=== PATIENT | male | born 1975 | race Caucasian/White ===

== ENCOUNTER 2017-01-31 14:26 | Emergency (ER) | payer SELFPAY ==
[~2017-01-31] VITALS: Ht 165.1 cm; Wt 83.5 kg
[2017-01-31 14:45] VITALS: Ht 165.1 cm; Wt 83.5 kg
--- NOTE | 2017-01-31 16:57 | ERA ---
ER Documentation Chief Complaint Date/Time DATE: 01/31/17 TIME: 16:57 Chief Complaint CAME IN VIA INTAKE DUE TO ABDOMINAL INJURY TWO WEEKS AGO WITH RECTAL BLEED HPI The patient is a 41-year-old male, presenting to the ER because he had abdominal injury from a tire about 2 weeks ago at work on Jan 06, 2017. He has been seen by his occupational medicine physician without any relief, therefore he came to the ER today. He reported that he had bloody stool the first day it happened. He denies head injury, neck pain, complains of vague chest discomfort, complains of moderate and diffuse abdominal pain, denies nausea, vomiting, dysuria, diarrhea. The abdominal pain has been exhibiting or relieving factor. He does not smoke, drinks socially, denies any illicit drug Past medical history/surgical history: None ROS All systems reviewed and are negative except as per history of present illness. Medications Home Meds Active Scripts Polyethylene Glycol* (Miralax*) 17 Gm Powd.pack, 17 GM PO DAILY, #7 Prov:BRANDEE HERNÁNDEZ MD 01/31/17 Ibuprofen* (Motrin*) 600 Mg Tab, 600 MG PO Q6, #30 TAB Prov:BRANDEE HERNÁNDEZ MD 01/31/17 Allergies Allergies: Coded Allergies: No Known Allergy (Unverified , 01/31/17) Physical Exam Vitals Vital Signs Date Time Temp Pulse Resp B/P Pulse Ox O2 Delivery O2 Flow Rate FiO2 01/31/17 19:58 61 16 125/29 99 Room Air 01/31/17 14:45 98.4 80 18 144/77 98 Physical Exam Const: No acute distress. Head: Atraumatic. Eyes: Normal Conjunctiva. ENT: Normal External Ears, Nose and Mouth. Neck: Full range of motion. No meningismus. Resp: Clear to auscultation bilaterally. Cardio: Regular rate and rhythm. Abd: Soft, non distended, normal bowel sounds, Diffuse and moderate abdominal tenderness, no rigidity, rebound, CVA tenderness Skin: No petechiae or rashes. Back: No midline or flank tenderness. Ext: No cyanosis, or edema. Neur: Awake and alert. No focal deficit Psych: Normal Mood and Affect. Result Diagram: 01/31/17 1740 01/31/17 1740 Results 24 hrs Laboratory Tests Test 01/31/17 17:40 01/31/17 18:26 White Blood Count 6.210^3/ul Red Blood Count 4.3910^6/ul Hemoglobin 14.0g/dl Hematocrit 39.4% Mean Corpuscular Volume 89.7fl Mean Corpuscular Hemoglobin 31.9pg Mean Corpuscular Hemoglobin Concent 35.5g/dl Red Cell Distribution Width 11.9% Platelet Count 36146^3/UL Mean Platelet Volume 8.5fl Neutrophils % 50.9% Lymphocytes % 39.3% Monocytes % 6.8% Eosinophils % 2.4% Basophils % 0.3% Nucleated Red Blood Cells % 0.0/100WBC Neutrophils # 3.110^3/ul Lymphocytes # 2.410^3/ul Monocytes # 0.410^3/ul Eosinophils # 0.210^3/ul Basophils # 0.010^3/ul Nucleated Red Blood Cells # 0.010^3/ul Prothrombin Time 12.4Sec Prothrombin Time Ratio 1.0 INR International Normalized Ratio 0.92 Activated Partial Thromboplast Time 30.6Sec Sodium Level 142mmol/L Potassium Level 3.8mmol/L Chloride Level 100mmol/L Carbon Dioxide Level 31mmol/L Anion Gap 15 Blood Urea Nitrogen 13mg/dl Creatinine 0.77mg/dl Glucose Level 105mg/dl Calcium Level 9.4mg/dl Total Bilirubin 0.5mg/dl Direct Bilirubin 0.00mg/dl Indirect Bilirubin 0.5mg/dl Aspartate Amino Transf (AST/SGOT) 40IU/L Alanine Aminotransferase (ALT/SGPT) 102IU/L Alkaline Phosphatase 99IU/L Total Protein 8.7g/dl Albumin 4.8g/dl Globulin 3.90g/dl Albumin/Globulin Ratio 1.23 Lipase 122U/L Bedside Urine pH (LAB) 7.0 Bedside Urine Protein (LAB) Negative Bedside Urine Glucose (UA) Negative Bedside Urine Ketones (LAB) Negative Bedside Urine Blood Negative Bedside Urine Nitrite (LAB) Negative Bedside Urine Leukocyte Esterase (L Negative Current Medications Medications (Trade) Dose Ordered Sig/Farnaz Route PRN Reason Start Time Stop Time Status Last Admin Dose Admin Morphine Sulfate (morphine) 2 mg ONCE STAT IV 01/31/17 17:02 01/31/17 17:06 DC 01/31/17 17:52 Ondansetron HCl (Zofran Inj) 4 mg ONCE STAT IV 01/31/17 17:02 01/31/17 17:06 DC 01/31/17 17:52 IV Flush 10 ml 10 ml STK-MED ONCE .ROUTE 01/31/17 18:18 01/31/17 18:19 DC Sodium Chloride 100 ml @ ud STK-MED ONCE .ROUTE 01/31/17 18:18 01/31/17 18:19 DC Iohexol (Omnipaque) 100 ml @ ud STK-MED ONCE .ROUTE 01/31/17 18:18 01/31/17 18:19 DC Iohexol (Omnipaque 350mg/ ml) 50 ml STK-MED ONCE .ROUTE 01/31/17 18:18 01/31/17 18:19 DC Procedures/[place] [id number] Radiology Main Line: [phone] DIAGNOSTIC IMAGING REPORT Patient: ANTHONY MURRIETA : 1975 Age: 41 Sex: M MR #: [id number] DOS: 01/31/17 1702 Ordering MD: BRANDEE HERNÁNDEZ MD Location: E/R Room/Bed: PROCEDURE: CTA Chest, abdomen and pelvis. CLINICAL INDICATION: Back and abdomen pain, trauma. TECHNIQUE: The study was performed utilizing a multidetector CT scanner. Direct spiral axial sections were obtained from the thoracic inlet through the pelvis with the use of 128 cc of Omnipaque 350 nonionic intravenous contrast material and reformatted at 2.5 mm. 3-D, coronal and sagittal reformations were obtained. The images were reviewed on a PACS workstation. DLP = 1122.3 mGy-cm. CTDiVol = 14.2 mGy. One or more of the following post reduction techniques were used: - Automated exposure control. - Adjustment of the mA and/or Kv according to patient's size. - Use of iterative reconstruction technique COMPARISON: No prior studies are available for comparison. FINDINGS: CTA chest: The aortic root measures 3.0 cm in maximal diameter. The ascending aorta measures 2.9 cm in maximal diameter. The mid aortic arch measures 2.3 cm in diameter. The proximal descending thoracic aorta measures 2.4 cm in diameter. The mid descending thoracic aorta measures 2.1 cm in diameter. The distal descending thoracic aorta measures 2.1 cm in diameter. No significant calcified or noncalcified atherosclerotic disease is identified in the aorta. No aortic aneurysm or dissection is seen. The origins of the great vessels from the arch of the aorta are widely patent. Normal filling of the visualized proximal portions of the great vessels is observed. The visualized pulmonary arteries fill normally. No pulmonary arterial filling defects are seen. CTA abdomen/pelvis: The abdominal aorta is patent throughout its entirety. No aneurysm or stenosis is observed. The origin of the celiac artery is widely patent. Normal filling of the distal branches of the celiac artery is observed. The origin of the superior mesenteric artery is widely patent. Normal filling of the distal branches of the superior mesenteric artery is observed. Variant anatomy with 2 left renal arteries is identified. The origins of the bilateral renal arteries are widely patent. Normal filling of the distal branches of the renal arteries is observed. Origin of the inferior mesenteric artery is widely patent. Normal filling of the distal branches of the inferior mesenteric artery is observed. Patent aortic bifurcation is observed. Bilateral common iliac arteries are widely patent and normal appearing. Patent bilateral common iliac artery bifurcations are identified. Bilateral internal and external iliac arteries are widely patent and normal appearing. The bilateral common femoral arteries are widely patent and normal appearing. Patent bilateral common femoral artery bifurcations are observed. The visualized proximal portions of the bilateral superficial femoral arteries are unremarkable. CT chest: Heart size is within normal limits. No hilar or mediastinal lymphadenopathy is identified. The visualized portions of the inferior thyroid appear unremarkable. The thoracic esophagus appears normal. Dependent, subsegmental atelectasis is noted in both lungs. Mild degenerative changes are seen in the spine. The subcutaneous and muscular soft tissues surrounding the chest are unremarkable. CT abdomen/pelvis: The liver, gallbladder, pancreas, spleen and adrenals are unremarkable. The kidneys demonstrate a normal appearance. No obstructive uropathy is observed. The bladder is filled with a small to moderate amount of urine. Prostate and seminal vesicles are unremarkable. Moderate to large amount of formed stool is identified in the right colon and transverse colon. Formed stool is also identified in the terminal ileum. The appendix is normal. No dilated loops of small bowel are observed. The stomach and duodenum are unremarkable. No intra-abdominal or pelvic free fluid or fluid collections are observed. No intra-abdominal or pelvic lymphadenopathy is observed. Mild to moderate degenerative changes are identified in the spine. Subcutaneous and muscular soft tissues surrounding the abdomen and pelvis are unremarkable. IMPRESSION: Unremarkable arterial vasculature of the chest abdomen and pelvis. No visualized traumatic injury. Moderate to large amount of formed stool in the right colon and transverse colon with formed stool seen in the terminal ileum. Findings are compatible with constipation. Degenerative changes in the spine. RPTAT: AA .Leo Garner MD, MD Date Time Electronically viewed and signed by .Leo Garner MD, MD on 01/31/2017 20:02 .P/ CC: BRANDEE HERNÁNDEZ MD [place] [id number] Radiology Main Line: [phone] DIAGNOSTIC IMAGING REPORT Patient: ANTHONY MURRIETA : 1975 Age: 41 Sex: M MR #: [id number] DOS: 01/31/17 1702 Ordering MD: BRANDEE HERNÁNDEZ MD Location: E/R Room/Bed: PROCEDURE: CTA Chest, abdomen and pelvis. CLINICAL INDICATION: Back and abdomen pain, trauma. TECHNIQUE: The study was performed utilizing a multidetector CT scanner. Direct spiral axial sections were obtained from the thoracic inlet through the pelvis with the use of 128 cc of Omnipaque 350 nonionic intravenous contrast material and reformatted at 2.5 mm. 3-D, coronal and sagittal reformations were obtained. The images were reviewed on a PACS workstation. DLP = 1122.3 mGy-cm. CTDiVol = 14.2 mGy. One or more of the following post reduction techniques were used: - Automated exposure control. - Adjustment of the mA and/or Kv according to patient's size. - Use of iterative reconstruction technique COMPARISON: No prior studies are available for comparison. FINDINGS: CTA chest: The aortic root measures 3.0 cm in maximal diameter. The ascending aorta measures 2.9 cm in maximal diameter. The mid aortic arch measures 2.3 cm in diameter. The proximal descending thoracic aorta measures 2.4 cm in diameter. The mid descending thoracic aorta measures 2.1 cm in diameter. The distal descending thoracic aorta measures 2.1 cm in diameter. No significant calcified or noncalcified atherosclerotic disease is identified in the aorta. No aortic aneurysm or dissection is seen. The origins of the great vessels from the arch of the aorta are widely patent. Normal filling of the visualized proximal portions of the great vessels is observed. The visualized pulmonary arteries fill normally. No pulmonary arterial filling defects are seen. CTA abdomen/pelvis: The abdominal aorta is patent throughout its entirety. No aneurysm or stenosis is observed. The origin of the celiac artery is widely patent. Normal filling of the distal branches of the celiac artery is observed. The origin of the superior mesenteric artery is widely patent. Normal filling of the distal branches of the superior mesenteric artery is observed. Variant anatomy with 2 left renal arteries is identified. The origins of the bilateral renal arteries are widely patent. Normal filling of the distal branches of the renal arteries is observed. Origin of the inferior mesenteric artery is widely patent. Normal filling of the distal branches of the inferior mesenteric artery is observed. Patent aortic bifurcation is observed. Bilateral common iliac arteries are widely patent and normal appearing. Patent bilateral common iliac artery bifurcations are identified. Bilateral internal and external iliac arteries are widely patent and normal appearing. The bilateral common femoral arteries are widely patent and normal appearing. Patent bilateral common femoral artery bifurcations are observed. The visualized proximal portions of the bilateral superficial femoral arteries are unremarkable. CT chest: Heart size is within normal limits. No hilar or mediastinal lymphadenopathy is identified. The visualized portions of the inferior thyroid appear unremarkable. The thoracic esophagus appears normal. Dependent, subsegmental atelectasis is noted in both lungs. Mild degenerative changes are seen in the spine. The subcutaneous and muscular soft tissues surrounding the chest are unremarkable. CT abdomen/pelvis: The liver, gallbladder, pancreas, spleen and adrenals are unremarkable. The kidneys demonstrate a normal appearance. No obstructive uropathy is observed. The bladder is filled with a small to moderate amount of urine. Prostate and seminal vesicles are unremarkable. Moderate to large amount of formed stool is identified in the right colon and transverse colon. Formed stool is also identified in the terminal ileum. The appendix is normal. No dilated loops of small bowel are observed. The stomach and duodenum are unremarkable. No intra-abdominal or pelvic free fluid or fluid collections are observed. No intra-abdominal or pelvic lymphadenopathy is observed. Mild to moderate degenerative changes are identified in the spine. Subcutaneous and muscular soft tissues surrounding the abdomen and pelvis are unremarkable. IMPRESSION: Unremarkable arterial vasculature of the chest abdomen and pelvis. No visualized traumatic injury. Moderate to large amount of formed stool in the right colon and transverse colon with formed stool seen in the terminal ileum. Findings are compatible with constipation. Degenerative changes in the spine. RPTAT: AA .Leo Garner MD, Date Time Electronically viewed and signed by .Leo Garner MD, on 01/31/2017 19:59 .P/ CC: BRANDEE HERNÁNDEZ MD [place] [address] Radiology Main Line: [phone] DIAGNOSTIC IMAGING REPORT Patient: ANTHONY MURRIETA : 1975 Age: 41 Sex: M MR #: [id number] DOS: 01/31/17 1702 Ordering MD: BRANDEE HERNÁNDEZ MD Location: E/R Room/Bed: PROCEDURE: CTA Chest, abdomen and pelvis. CLINICAL INDICATION: Back and abdomen pain, trauma. TECHNIQUE: The study was performed utilizing a multidetector CT scanner. Direct spiral axial sections were obtained from the thoracic inlet through the pelvis with the use of 128 cc of Omnipaque 350 nonionic intravenous contrast material and reformatted at 2.5 mm. 3-D, coronal and sagittal reformations were obtained. The images were reviewed on a PACS workstation. DLP = 1122.3 mGy-cm. CTDiVol = 14.2 mGy. One or more of the following post reduction techniques were used: - Automated exposure control. - Adjustment of the mA and/or Kv according to patient's size. - Use of iterative reconstruction technique COMPARISON: No prior studies are available for comparison. FINDINGS: CTA chest: The aortic root measures 3.0 cm in maximal diameter. The ascending aorta measures 2.9 cm in maximal diameter. The mid aortic arch measures 2.3 cm in diameter. The proximal descending thoracic aorta measures 2.4 cm in diameter. The mid descending thoracic aorta measures 2.1 cm in diameter. The distal descending thoracic aorta measures 2.1 cm in diameter. No significant calcified or noncalcified atherosclerotic disease is identified in the aorta. No aortic aneurysm or dissection is seen. The origins of the great vessels from the arch of the aorta are widely patent. Normal filling of the visualized proximal portions of the great vessels is observed. The visualized pulmonary arteries fill normally. No pulmonary arterial filling defects are seen. CTA abdomen/pelvis: The abdominal aorta is patent throughout its entirety. No aneurysm or stenosis is observed. The origin of the celiac artery is widely patent. Normal filling of the distal branches of the celiac artery is observed. The origin of the superior mesenteric artery is widely patent. Normal filling of the distal branches of the superior mesenteric artery is observed. Variant anatomy with 2 left renal arteries is identified. The origins of the bilateral renal arteries are widely patent. Normal filling of the distal branches of the renal arteries is observed. Origin of the inferior mesenteric artery is widely patent. Normal filling of the distal branches of the inferior mesenteric artery is observed. Patent aortic bifurcation is observed. Bilateral common iliac arteries are widely patent and normal appearing. Patent bilateral common iliac artery bifurcations are identified. Bilateral internal and external iliac arteries are widely patent and normal appearing. The bilateral common femoral arteries are widely patent and normal appearing. Patent bilateral common femoral artery bifurcations are observed. The visualized proximal portions of the bilateral superficial femoral arteries are unremarkable. CT chest: Heart size is within normal limits. No hilar or mediastinal lymphadenopathy is identified. The visualized portions of the inferior thyroid appear unremarkable. The thoracic esophagus appears normal. Dependent, subsegmental atelectasis is noted in both lungs. Mild degenerative changes are seen in the spine. The subcutaneous and muscular soft tissues surrounding the chest are unremarkable. CT abdomen/pelvis: The liver, gallbladder, pancreas, spleen and adrenals are unremarkable. The kidneys demonstrate a normal appearance. No obstructive uropathy is observed. The bladder is filled with a small to moderate amount of urine. Prostate and seminal vesicles are unremarkable. Moderate to large amount of formed stool is identified in the right colon and transverse colon. Formed stool is also identified in the terminal ileum. The appendix is normal. No dilated loops of small bowel are observed. The stomach and duodenum are unremarkable. No intra-abdominal or pelvic free fluid or fluid collections are observed. No intra-abdominal or pelvic lymphadenopathy is observed. Mild to moderate degenerative changes are identified in the spine. Subcutaneous and muscular soft tissues surrounding the abdomen and pelvis are unremarkable. IMPRESSION: Unremarkable arterial vasculature of the chest abdomen and pelvis. No visualized traumatic injury. Moderate to large amount of formed stool in the right colon and transverse colon with formed stool seen in the terminal ileum. Findings are compatible with constipation. Degenerative changes in the spine. RPTAT: AA .Leo Garner MD, Date Time Electronically viewed and signed by .Leo Garner MD, on 01/31/2017 20:01 .P/ CC: BRANDEE HERNÁNDEZ MD MEDICAL MAKING DECISION: The patient is a 41-year-old male, presenting with acute chest pain, acute abdominal pain after an impact form and explored prior to weeks ago. There is no evidence of intrathoracic or intra-abdominal injury. The hematochezia might be from constipation and possible hemorrhoids The differential diagnoses for acute chest pain considered include but are not limited to acute coronary syndrome, acute myocardial infarction, pericarditis, pulmonary embolism, aortic dissection, pneumonia, pleural effusion, pneumothorax , GERD, chest wall pain. The differential diagnoses for acute abdominal pain considered include but are not limited to cholelithiasis, cholecystitis, cystitis, pancreatitis, hepatitis , gastritis, peptic ulcer disease, gastric ulcer, appendicitis, diverticulitis, cholangitis, choledocholithiasis, partial small bowel obstruction. Departure Diagnosis: Primary Impression: Chest pain Additional Impressions: Abdominal pain Constipation Hematochezia due to medication Condition: Good Comments He was discharged with MiraLAX and Motrin X I discussed the findings with the patient. I advised the patient to follow-up with the primary physician in about 1-2 days, sooner if needed and return if any concern. The patient's blood pressure was elevated (>120/80) but appears stable without evidence of hypertension emergency or urgency. The patient was counseled about the risks of hypertension and urged to pursue outpatient monitoring and therapy within a week with their primary care physician. BRANDEE HERNÁNDEZ MD Jan 31, 2017 16:57
[2017-01-31] MEDS ORDERED: ONDANSETRON 4 MG INJ IV STA (17:02)
[2017-01-31] MEDS ORDERED: morphine 2 MG INJ IV STA (17:02)
[2017-01-31 17:53] LABS: BASOPHILS % 0.3 % (0.0-2.0); EOSINOPHILS # 0.2 10^3/ul (0.0-0.5); EOSINOPHILS % 2.4 % (0.0-7.0); HEMATOCRIT 39.4 % (42.0-52.0); LYMPHOCYTES # 2.4 10^3/ul (0.8-2.9); LYMPHOCYTES % 39.3 % (15.0-51.0); MEAN CORPUSCULAR HEMOGLOBIN 31.9 pg (29.0-33.0); MEAN CORPUSCULAR HGB CONC 35.5 g/dl (32.0-37.0); MEAN CORPUSCULAR VOLUME 89.7 fl (82.0-101.0); MEAN PLATELET VOLUME 8.5 fl (7.4-10.4); MONOCYTE # 0.4 10^3/ul (0.3-0.9); MONOCYTES % 6.8 % (0.0-11.0); NEUTROPHIL # 3.1 10^3/ul (1.6-7.5); NEUTROPHILS % 50.9 % (39.0-77.0); PLATELET COUNT 306 10^3/UL (140-415); RED BLOOD COUNT 4.39 10^6/ul (4.70-6.10); RED CELL DISTRIBUTION WIDTH 11.9 % (11.5-14.5); WHITE BLOOD COUNT 6.2 10^3/ul (4.8-10.8)
[2017-01-31 18:09] LABS: INR 0.92; PROTIME 12.4 Sec (12.2-14.2)
[2017-01-31 18:11] LABS: ALBUMIN 4.8 g/dl (3.3-4.9); ALBUMIN/GLOBULIN RATIO 1.23; BILIRUBIN,INDIRECT 0.5 mg/dl (0-1.1); BILIRUBIN,TOTAL 0.5 mg/dl (0.2-1.3); CALCIUM 9.4 mg/dl (8.4-10.2); CREATININE 0.77 mg/dl (0.61-1.24); PARTIAL THROMBOPLASTIN TIME 30.6 Sec (25.0-35.0); POTASSIUM 3.8 mmol/L (3.5-5.1); TOTAL PROTEIN 8.7 g/dl (6.1-8.1)
[2017-01-31 18:18] LABS: URINE BLOOD (Dip) POC Negative (NEGATIVE)
[2017-01-31] MEDS ORDERED: IOHEXOL 100 ML ONE (18:18)
[2017-01-31] MEDS ORDERED: SOD CHLORIDE 0.9% 100 ML ONE (18:18)
[2017-01-31] MEDS ORDERED: IOHEXOL 350MG/ML 50 ML BTL ONE (18:18)
[2017-01-31 19:58] VITALS: BP 125/29; PULSE 61; RESP 16
--- NOTE | 2017-01-31 20:00 | RADRPT ---
PROCEDURE: CTA Chest, abdomen and pelvis. CLINICAL INDICATION: Back and abdomen pain, trauma. TECHNIQUE: The study was performed utilizing a multidetector CT scanner. Direct spiral axial secti ons were obtained from the thoracic inlet through the pelvis with the use of 128 cc of Omnipaque 350 nonionic intravenous contrast material and reformatted at 2.5 mm. 3-D, coronal and sagittal reforma tions were obtained. The images were reviewed on a PACS workstation. DLP = 1122.3 mGy-cm. CTDiVol = 14.2 mGy. One or more of the following post reduction techniques were used: - Automated exposure control. - Adjustment of the mA and/or Kv according to patient's size. - Use of iterative reconstruction technique COMPARISON: No prior studies are available for comparison. FINDINGS: CTA chest: The aortic root measures 3.0 cm in maximal diameter. The ascending aorta measures 2.9 cm in maxim al diameter. The mid aortic arch measures 2.3 cm in diameter. The proximal descending thoracic a marco measures 2.4 cm in diameter. The mid descending thoracic aorta measures 2.1 cm in diameter. The distal descending thoracic aorta measures 2.1 cm in diameter. No significant calcified or noncalcified atherosclerotic disease is identified in the aorta. No aor tic aneurysm or dissection is seen. The origins of the great vessels from the arch of the aorta are widely patent. Normal filling of the visualized proximal portions of the great vessels is observed. The visualized pulmonary arteries fill normally. No pulmonary arterial filling defects are seen. CTA abdomen/pelvis: The abdominal aorta is patent throughout its entirety. No aneurysm or stenosis is observed. The origin of the celiac artery is widely patent. Normal filling of the distal branches of the jamie ac artery is observed. The origin of the superior mesenteric artery is widely patent. Normal filling of the distal branche s of the superior mesenteric artery is observed. Variant anatomy with 2 left renal arteries is identified. The origins of the bilateral renal arterie s are widely patent. Normal filling of the distal branches of the renal arteries is observed. Origin of the inferior mesenteric artery is widely patent. Normal filling of the distal branches of the inferior mesenteric artery is observed. Patent aortic bifurcation is observed. Bilateral common iliac arteries are widely patent and normal appearing. Patent bilateral common iliac artery bifurcations are identified. Bilateral internal and external iliac arteries are widely patent and normal appearing. The bilateral common femoral arteri es are widely patent and normal appearing. Patent bilateral common femoral artery bifurcations are o bserved. The visualized proximal portions of the bilateral superficial femoral arteries are unremark able. CT chest: Heart size is within normal limits. No hilar or mediastinal lymphadenopathy is identified. The vis ualized portions of the inferior thyroid appear unremarkable. The thoracic esophagus appears normal . Dependent, subsegmental atelectasis is noted in both lungs. Mild degenerative changes are seen in the spine. The subcutaneous and muscular soft tissues surroun ding the chest are unremarkable. CT abdomen/pelvis: The liver, gallbladder, pancreas, spleen and adrenals are unremarkable. The kidneys demonstrate a normal appearance. No obstructive uropathy is observed. The bladder is fi lled with a small to moderate amount of urine. Prostate and seminal vesicles are unremarkable. Moderate to large amount of formed stool is identified in the right colon and transverse colon. Form ed stool is also identified in the terminal ileum. The appendix is normal. No dilated loops of sma ll bowel are observed. The stomach and duodenum are unremarkable. No intra-abdominal or pelvic free fluid or fluid collections are observed. No intra-abdominal or pe lvic lymphadenopathy is observed. Mild to moderate degenerative changes are identified in the spine. Subcutaneous and muscular soft t issues surrounding the abdomen and pelvis are unremarkable. IMPRESSION: Unremarkable arterial vasculature of the chest abdomen and pelvis. No visualized traumatic injury. Moderate to large amount of formed stool in the right colon and transverse colon with formed stool s een in the terminal ileum. Findings are compatible with constipation. Degenerative changes in the spine. RPTAT: AA .Leo Garner MD, MD Date Time Electronically viewed and signed by .Leo Garner MD, MD on 01/31/2017 19:59 .P/
--- NOTE | 2017-01-31 20:02 | RADRPT ---
PROCEDURE: CTA Chest, abdomen and pelvis. CLINICAL INDICATION: Back and abdomen pain, trauma. TECHNIQUE: The study was performed utilizing a multidetector CT scanner. Direct spiral axial section s were obtained from the thoracic inlet through the pelvis with the use of 128 cc of Omnipaque 350 n onionic intravenous contrast material and reformatted at 2.5 mm. 3-D, coronal and sagittal reformati ons were obtained. The images were reviewed on a PACS workstation. DLP = 1122.3 mGy-cm. CTDiVol = 14 .2 mGy. One or more of the following post reduction techniques were used: - Automated exposure control. - Adjustment of the mA and/or Kv according to patient's size. - Use of iterative reconstruction technique COMPARISON: No prior studies are available for comparison. FINDINGS: CTA chest: The aortic root measures 3.0 cm in maximal diameter. The ascending aorta measures 2.9 cm in maximal diameter. The mid aortic arch measures 2.3 cm in diameter. The proximal descending thoracic aorta me asures 2.4 cm in diameter. The mid descending thoracic aorta measures 2.1 cm in diameter. The distal descending thoracic aorta measures 2.1 cm in diameter. No significant calcified or noncalcified atherosclerotic disease is identified in the aorta. No aort ic aneurysm or dissection is seen. The origins of the great vessels from the arch of the aorta are w idely patent. Normal filling of the visualized proximal portions of the great vessels is observed. The visualized pulmonary arteries fill normally. No pulmonary arterial filling defects are seen. CTA abdomen/pelvis: The abdominal aorta is patent throughout its entirety. No aneurysm or stenosis is observed. The origin of the celiac artery is widely patent. Normal filling of the distal branches of the conrad c artery is observed. The origin of the superior mesenteric artery is widely patent. Normal filling of the distal branches of the superior mesenteric artery is observed. Variant anatomy with 2 left renal arteries is identified. The origins of the bilateral renal arterie s are widely patent. Normal filling of the distal branches of the renal arteries is observed. Origin of the inferior mesenteric artery is widely patent. Normal filling of the distal branches of the inferior mesenteric artery is observed. Patent aortic bifurcation is observed. Bilateral common iliac arteries are widely patent and normal appearing. Patent bilateral common iliac artery bifurcations are identified. Bilateral internal and external iliac arteries are widely patent and normal appearing. The bilateral common femoral arterie s are widely patent and normal appearing. Patent bilateral common femoral artery bifurcations are ob served. The visualized proximal portions of the bilateral superficial femoral arteries are unremarka ble. CT chest: Heart size is within normal limits. No hilar or mediastinal lymphadenopathy is identified. The visua lized portions of the inferior thyroid appear unremarkable. The thoracic esophagus appears normal. Dependent, subsegmental atelectasis is noted in both lungs. Mild degenerative changes are seen in the spine. The subcutaneous and muscular soft tissues surround ing the chest are unremarkable. CT abdomen/pelvis: The liver, gallbladder, pancreas, spleen and adrenals are unremarkable. The kidneys demonstrate a normal appearance. No obstructive uropathy is observed. The bladder is thania led with a small to moderate amount of urine. Prostate and seminal vesicles are unremarkable. Moderate to large amount of formed stool is identified in the right colon and transverse colon. Form ed stool is also identified in the terminal ileum. The appendix is normal. No dilated loops of small bowel are observed. The stomach and duodenum are unremarkable. No intra-abdominal or pelvic free fluid or fluid collections are observed. No intra-abdominal or pel ivy lymphadenopathy is observed. Mild to moderate degenerative changes are identified in the spine. Subcutaneous and muscular soft ti ssues surrounding the abdomen and pelvis are unremarkable. IMPRESSION: Unremarkable arterial vasculature of the chest abdomen and pelvis. No visualized traumatic injury. Moderate to large amount of formed stool in the right colon and transverse colon with formed stool s een in the terminal ileum. Findings are compatible with constipation. Degenerative changes in the spine. RPTAT: AA .Leo Garner MD, Date Time Electronically viewed and signed by .Leo Garner MD, on 01/31/2017 20:02 .P/
[2017-01-31] MEDS ORDERED: IBUP-1542 PO (20:11)
[2017-01-31] MEDS ORDERED: POLY17PO6 PO (20:12)
== END 2017-01-31 20:32 | disposition home or self-care (01) ==
LOC: E/R 14:26
DX: K59.00 Constipation, unspecified (principal); K92.1 Melena; R07.89 Other chest pain
CPT/HCPCS: 36415; 71275; 72191; 75635; 80053; 81003; 83690; 85025; 85610; 85730; 96374; 96375; 99285; J2270; J2405; Q9967